=== PATIENT | female | born 1935 | race Caucasian/White ===

== ENCOUNTER → 2017-09-29 | Outpatient (CLI) | payer OTHER ==
[~2017-09-29] MED LIST: ASPCH81X PO; CALC-388 PO; LEVO5TAB2 PO; LISI-461 PO; METO25TA56 PO; MULTCAP7 PO; PRVC40 PO; TRAM-10 PO
== END | disposition home or self-care (01) ==
LOC: C.LABSPEC 17:35
PROVIDERS: ATTEND Urology
DX: R30.0 Dysuria (principal); R31.29 Other microscopic hematuria; R32 Unspecified urinary incontinence; N39.0 Urinary tract infection, site not specified

== ENCOUNTER → 2017-10-19 | Outpatient (CLI) | payer OTHER ==
--- NOTE | 2017-10-19 12:44 | DIAGNOSTIC IMAGING REPORT ---
ABD/PELVIS COMBO HISTORY: 81 years-old Female CAROTID BRUIT/BILATERAL, PULSATILE TINNITUS/BILAT acute incontinence and hematuria with acute urinary tract infection. History of cervical carcinoma with prior hysterectomy. COMPARISON: None available TECHNIQUE: Multiple axial CT images of the abdomen and pelvis were obtained both with and without the use of 93 mL Optiray 320 IV contrast utilizing hematuria protocol. A dose lowering technique was used consistent with the principals of ARIA. FINDINGS: Subpleural reticular opacities are seen within the lung bases, right greater the left suggesting admixture of fibrosis with atelectasis. There is no pneumatosis or pneumoperitoneum identified. Imaged inferior cardiac chambers are mildly enlarged. Aortic leaflets calcifications are present. The liver, gallbladder, spleen, pancreas and adrenal glands are unremarkable. There are a few hypodense lesions about the bilateral kidneys measuring up to 3.6 x 4.1 cm and the right suggesting renal cysts. No renal or ureteral calculi identified. No suspicious enhancing renal mass lesions. No hydronephrosis. No filling defects identified within the renal collecting systems or ureters. Mild tortuosity about the bilateral ureters. The distal right ureter is not well opacified which limits evaluation. Mild distention of the bladder measuring up to 10.6 cm in length. Postoperative changes from hysterectomy. Surgical clips noted about the bilateral pelvic sidewalls. Moderate calcification of the aorta without aneurysm. IVC appears unremarkable. Patent portal vein. There are no pathologically enlarged lymph nodes identified. No bowel obstruction or focal bowel wall thickening. Moderate volume of formed stool throughout the colon suggest constipation. Colonic diverticulosis without diverticulitis. The visualized appendix appears normal. Surgical suture material about the anterior abdominal wall. Severe multilevel facet arthropathy. The bones appear mildly demineralized. Multilevel vacuum disc phenomenon. Grade 1 anterolisthesis L3 on L4. Multilevel annular disc bulging. Dystrophic calcifications about the ischial tuberosities. Mild convex right curvature of the lumbar spine. IMPRESSION: 1. No renal calculi, hydronephrosis or collecting system filling defects. 2. Mild urinary bladder distention. 3. Prior hysterectomy. 4. Colonic diverticulosis without diverticulitis. 5. Additional incidental findings as above. The above report was generated using voice recognition software. It may contain grammatical, syntax or spelling errors. Electronically signed by: Bhavesh Almazan M.D. 10/19/2017 12:43 PM Dictated Date/Time: 10/19/2017 12:32 PM
== END | disposition home or self-care (01) ==
LOC: C.CTS 11:43
PROVIDERS: ATTEND Urology
DX: N39.0 Urinary tract infection, site not specified (principal); R31.29 Other microscopic hematuria; R30.0 Dysuria; R32 Unspecified urinary incontinence; Z90.710 Acquired absence of both cervix and uterus; K57.30 Diverticulosis of large intestine without perforation or abscess without bleeding

== ENCOUNTER → 2017-10-20 | Outpatient (CLI) | payer OTHER ==
--- NOTE | 2017-10-20 14:27 | DIAGNOSTIC IMAGING REPORT ---
MRI LUMBAR SPINE W/O CONTRAST CLINICAL HISTORY: Low back pain. Leg weakness. Bladder issues. TECHNIQUE: Sagittal and axial T1, T2 and STIR images were obtained. COMPARISON STUDY: Conventional radiographic study dated 09/18/2017 OBSERVATIONS: [employer] images reveal a 4.5 cm upper pole right renal mass which likely represents a cyst. There are no suspicious areas of marrow replacement. L1-2: There is a mild circumferential disc bulge. There is facet joint arthropathy. There is minimal spinal canal narrowing. There is minor bilateral foraminal narrowing. L2-3: There is a circumferential disc bulge. There are postsurgical changes present. There is facet joint arthropathy. There is mild spinal stenosis. There is moderate bilateral foraminal narrowing. L3-4: There is a grade 1 spondylolisthesis of L3 on L4. There is a circumferential disc bulge present. There are postsurgical changes present. There is facet joint arthropathy. There is mild spinal stenosis. There is bilateral foraminal narrowing. L4-5: There is a circumferential disc bulge present. There are postsurgical changes present. There is facet joint arthropathy. There is mild spinal stenosis. There is bilateral foraminal narrowing. L5-S1: There are postsurgical changes present. There is epidural lipomatosis. The thecal sac is diminutive. There is an equivocal septum extending to the posterior elements to the disc. Underlying congenital abnormality this level cannot be excluded. The conus medullaris and cauda equina appear normal. IMPRESSION: 1. Extensive postsurgical changes with multilevel spondylitic changes, and multilevel disc bulges. There is multilevel mild spinal stenosis and multilevel foraminal stenosis. There is epidural lipomatosis at the L5 level. An underlying congenital abnormality of the distal thecal sac cannot be excluded Electronically signed by: Markie Francis M.D. 10/20/2017 2:26 PM Dictated Date/Time: 10/20/2017 2:18 PM
== END | disposition home or self-care (01) ==
LOC: C.MRIBC 13:16
PROVIDERS: ATTEND Orthopaedic Surgery Orthopaedic Surgery of the Spine
DX: M48.061 Spinal stenosis, lumbar region without neurogenic claudication (principal); M47.816 Spondylosis without myelopathy or radiculopathy, lumbar region; M51.26 Other intervertebral disc displacement, lumbar region; D17.79 Benign lipomatous neoplasm of other sites